=== PATIENT | male | born 1965 | race Caucasian/White ===

== ENCOUNTER 2024-07-21 14:38 | Day surgery (SDC) | payer OTHER ==
[~2024-07-21 14:38] MED LIST: Cefuroxime 10 MG/ML SYRINGE EYERT SCH; Erythromycin Base 0.5% Ophth Oint 1 GM Tube ONE; Lidocaine 1% PF 2 ML SDV INJECT SCH; Lidocaine 1% with EPINEPHrine 1:100,000 20 ML MDV ONE; Pilocarpine 4% Ophth Soln 15 ML Bot EYERT SCH
[2024-07-21] MEDS: Polymyxin B/Trimethoprim 10 ML Bottle EYERT SCH (15:05)
[2024-07-21] MEDS: Brimonidine 0.2% Ophth Soln 5 ML Bottle EYERT SCH (15:10)
[2024-07-21] MEDS: Phenylephrine 2.5% Ophth Soln 2 ML Bot EYERT SCH (15:15)
[2024-07-21] MEDS: Tropicamide 1% Ophth Soln 3 ML Bottle EYERT SCH (15:21)
[2024-07-21] MEDS: Tetracaine HCl/PF 0.5% 4 ML Bottle EYEBOTH SCH (16:17)
== END 2024-07-21 17:25 | disposition home or self-care (01) ==
LOC: JD.SDS 14:38
PROVIDERS: ATTEND Ophthalmology
DX: H25.813 Combined forms of age-related cataract, bilateral (principal); H02.89 Other specified disorders of eyelid; D23.111 Other benign neoplasm of skin of right upper eyelid, including canthus; D23.121 Other benign neoplasm of skin of left upper eyelid, including canthus; D48.5 Neoplasm of uncertain behavior of skin; H34.823 Venous engorgement, bilateral; H16.103 Unspecified superficial keratitis, bilateral; H16.223 Keratoconjunctivitis sicca, not specified as Sjogren's, bilateral; I10 Essential (primary) hypertension; E78.2 Mixed hyperlipidemia; F17.200 Nicotine dependence, unspecified, uncomplicated
CPT/HCPCS: 66984; A9270; J3490

== ENCOUNTER 2024-08-11 14:04 | Day surgery (SDC) | payer OTHER ==
[2024-08-11] MEDS: Polymyxin B/Trimethoprim 10 ML Bottle EYELF SCH (15:12)
[2024-08-11] MEDS: Brimonidine 0.2% Ophth Soln 5 ML Bottle EYELF SCH (15:18)
[2024-08-11] MEDS: Phenylephrine 2.5% Ophth Soln 2 ML Bot EYELF SCH (15:22)
[2024-08-11] MEDS: Tropicamide 1% Ophth Soln 3 ML Bottle EYELF SCH (15:26)
[2024-08-11] MEDS: Tetracaine HCl/PF 0.5% 4 ML Bottle EYEBOTH SCH (16:11)
[2024-08-11] MEDS: Lidocaine 1% with EPINEPHrine 1:100,000 20 ML MDV ONE (16:23)
[2024-08-11] MEDS: Lidocaine 1% PF 2 ML SDV INJECT SCH (16:34)
[2024-08-11] MEDS: Cefuroxime 10 MG/ML SYRINGE EYELF SCH (16:40)
[2024-08-11] MEDS: Pilocarpine 4% Ophth Soln 15 ML Bot EYELF SCH (16:48)
[2024-08-11] MEDS: Erythromycin Base 0.5% Ophth Oint 1 GM Tube ONE (16:48)
== END 2024-08-11 17:00 | disposition home or self-care (01) ==
LOC: JD.SDS 14:04
PROVIDERS: ATTEND Ophthalmology
DX: H25.812 Combined forms of age-related cataract, left eye (principal); H02.89 Other specified disorders of eyelid; I10 Essential (primary) hypertension; E78.2 Mixed hyperlipidemia; Z79.899 Other long term (current) drug therapy
CPT/HCPCS: 66984; A9270; J0697; J3490